=== PATIENT | female | born 1985 | race Caucasian/White ===

== ENCOUNTER 2016-11-11 11:42 | Observation (INO) ==
[2016-11-11] MEDS ORDERED: CefTRIAXone 1,000 MG in D5% in Water (Mini-Bag+) 100 ML IVPB ONE (12:14)
--- NOTE | 2016-11-11 12:14 | Emergency Department Note ---
Disposition Clinical Impression: Sepsis, Altered mental status Disposition: Home, Self-Care Condition: Fair Referrals: Marie Williamson, [employer] [Primary Care Provider] - Forms: ED Satisfaction Letter Time of Disposition: 13:26 (jordan SOTEOL [facility]) Altered Mental Status HPI - General Chief Complaint: ED Altered Mental Status Stated Complaint: Pt not right, out of head, delusional Time Seen by Provider: 11/11/16 12:00 Source: family Mode of arrival: wheelchair Limitations: altered mental status Nursing Notes Reviewed: Yes Vital Signs Reviewed: Yes - History of Present Illness HPI Narrative: Patient had periods of confusion recently diagnosed with influenza A finished a course of Tamiflu has not been eating or drinking during this period time she has had nausea vomiting diarrhea since starting the patient states that she still having fever chills and body aches she is having cough congestion she is having abdominal pain she denies any blurred vision double vision as we feels like he hurts racing denies numbness and weakness recent weight gain or weight loss she denies anyone else having symptoms as she did was diagnosed with pneumonia during this period of time also placed on an antibiotic denies any cough medication MD complaint: confusion Onset (ago): day(s) Timing confirmed by: spouse Pain Severity: moderate Pain Scale: 5 Consistency of Symptoms: waxing and waning Associated symptoms: Reports: chest pain, cough, fever, loss of appetite, malaise, nausea/vomiting, shortness of breath, syncope (near), weakness, difficulty walking. Denies: diaphoresis, chills, headaches, rash, foul smelling urine, diarrhea, incontinence - Related Data Home Medications Medication Instructions Recorded Confirmed Citalopram Hydrobromide [Celexa] 11/11/16 Previous Rx's Medication Instructions Recorded Ibuprofen [Motrin] 600 mg PO Q6HR PRN #20 tab 11/04/16 Acetaminophen/Butalbital/Caffe 1 each PO Q6HR PRN #12 tablet 11/11/16 [Fioricet] Albuterol Sulfate [Albuterol 2 puff IH Q6HR PRN #1 hfa.aer.ad 11/11/16 Inhaler] PredniSONE 20 mg PO DAILY #16 tablet 11/11/16 Allergies Allergy/AdvReac Type Severity Reaction Status Date / Time codeine Allergy Swelling Verified 08/28/16 08:17 of Lip/Tongue/Throat All systems ED: reviewed and negative except as stated. Constitutional: Reports: fever. Denies: chills, weakness Eyes: Denies: vision change ENT ED: Reports: congestion. Denies: ear pain, throat pain Cardiovascular: Reports: chest pain. Denies: palpitations Respiratory: Reports: cough, dyspnea, wheezes, sputum production Gastrointestinal: Reports: abdominal pain, nausea. Denies: vomiting Genitourinary: Denies: urgency, dysuria, frequency Musculoskeletal: Denies: back pain, neck pain Integumentary: Denies: rash, abrasion Neurological: Denies: headache Psychiatric: Denies: anxiety Endocrine: Denies: fatigue Hematological/Lymphatic: Denies: easy bleeding Allergic/Immunologic: Denies: facial swelling Past Medical History - Past Medical History Attestation: Yes The following information was validated with the patient. 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 - Social History Smoking Status: Current every day smoker Smokeless Tobacco Status: Yes Alcohol use: Reports: occasionally Drug use: Reports: marijuana Physical Exam - General Limitations: altered mental status General appearance: alert, in no apparent distress, appears intoxicated, anxious - Head Head exam: atraumatic, normocephalic, normal inspection - Eye Eye exam: Present: normal appearance, PERRL, EOMI - ENT ENT exam: normal exam, normal oropharynx, mucous membranes dry, TM's normal bilaterally, normal external ear exam, other (PND) - Neck Neck exam: Present: normal inspection, full ROM, trachea midline - Chest Chest inspection: Present: normal inspection, symmetric chest wall rise - Respiratory Respiratory exam: Present: normal lung sounds bilaterally, wheezes - Cardiovascular Cardiovascular exam: Present: tachycardia, normal heart sounds - Abdominal Exam Abdominal exam: Present: soft, Non-Tender, normal bowel sounds. Absent: mass, pulsatile mass - Extremities Exam Extremities exam: Present: normal inspection, full ROM, normal capillary refill. Absent: tenderness, pedal edema, calf tenderness - Expanded Lower Extremity Exam Gait: other (feels weak when walking) - Back Exam Back exam: Present: normal inspection, full ROM. Absent: muscle spasm - Neurological Exam Neurological exam: Present: alert, CN II-XII intact, other (at times appeared confused with numbers and forgetful) - Psychiatric Psychiatric exam: Present: anxious - Skin Skin exam: Present: warm, dry, intact, normal color Course Course Narrative: Seen and examined laboratory data ordered chest x-ray was changed to a CT chest infection recently was diagnosed with pneumonia make sure see if it is worsening results patient given fluids - Reevaluation(s) Reevaluation #1: Results patient showing continued confusion and elevated lactic acid level with blood cultures pending we will admit her with IV antibiotics of vancomycin and Rocephin I spoke with Dr. Kinney he is in agreement patient be transferred to [facility] she is given IV fluids to hydrate patient stable at this time Vital Signs Temperature 98.1 F 11/11/16 11:49 Pulse Rate 120 11/11/16 11:49 Respiratory Rate 16 11/11/16 11:49 Blood Pressure 123/67 11/11/16 11:49 O2 Sat by Pulse Oximetry 100 11/11/16 11:49 Temperature 98.6 F 11/11/16 13:15 Pulse Rate 85 11/11/16 13:15 Respiratory Rate 16 11/11/16 13:15 Blood Pressure 108/67 11/11/16 13:15 O2 Sat by Pulse Oximetry 98 11/11/16 13:15 Oxygen Delivery Oxygen Delivery Room Air Altered Mental Status - Differential Diagnosis Likely: altered mental status, sepsis - Medical Records Medical records reviewed: Yes I reviewed the patient's medical records. - Lab Data Lab results reviewed: Yes I reviewed the patient's lab results. Result diagrams: 11/11/16 12:25 Lab Results 11/11/16 11/11/16 11/11/16 Range/Units 12:25 12:25 12:25 WBC 8.8 (4.3-11.1) K/mcL RBC 4.91 (3.82-4.97) M/mcL Hgb 15.2 (11.5-15.4) g/dL Hct 45.2 H (35.3-44.9) % MCV 92.1 (83.0-100.0) fL MCH 31.0 (28.0-33.3) pg MCHC 33.6 (31.6-35.5) g/dL RDW 12.0 (11.5-14.5) % Plt Count 318 (140-400) K/mcL MPV 9.8 (9.4-12.4) fL Immature Gran % 0.5 (0-4) % Seg Neutrophils % 91.0 % Lymphocytes % 7.2 % Monocytes % 1.3 % Eosinophils % 0.0 % Basophils % 0.0 % Neutrophils # 8.0 (1.6-8.9) K/mcL Lymphocytes # 0.6 (0.6-4.6) K/mcL Monocytes # 0.1 (0.0-1.3) K/mcL Eosinophils # 0.0 (0.0-0.6) K/mcL Basophils # 0.0 (0.0-0.2) K/mcL PT 13.5 H (9.4-12.1) Seconds INR 1.2 APTT 31.5 (26.0-36.0) Seconds VBG Lactic Acid 4.8 H* (0.5-2.2) mmol/L - Radiology Data Radiology results reviewed: Yes I reviewed the patient's radiology results. ITS Impressions Chest CT 11/11/16 12:12 IMPRESSION: 1. No acute intrathoracic abnormality. 2. Evidence of prior granulomatous disease with calcified mediastinal and hilar lymph nodes, and a calcified granuloma in the left lower lobe. D/ / 11/11/2016 13:18:41 Nash Park MD / earjose Interpreting Provider: Nash Park MD Head CT 11/11/16 12:12 IMPRESSION: No acute intracranial abnormality detected. Fluid within the paranasal sinuses. D/ / Contreras Jimenez MD / Contreras Jimenez MD Interpreting Provider: Contreras Jimenez MD Checklist - LKW: 3-4.5 hrs Add. Contraindications Patient/family understanding: The patient/family members have been counseled and understood the risk, benefit , and alternatives of treatment. Critical Care Time Critical Care Time: Yes Total Critical Care Time: 35 Attestation: Critical care performed: 35 minutes as result of the elevated lactic acid level which could be consistent with a bacteremia though she does not have the elevated white count but she recently finished antibiotics and this evening secondary to the influenza no evidence of hypoxemia is noted at this time patient appears to be answering questions appropriately at times appears to be more confused with dates and times family at bedside Time is exclusive of separately billable procedures. Time includes: direct patient care, patient reassessment, coordination of patient care, interpretation of data (laboratory data, radiology data, and respiratory data), review of patient's medical records, medical consultation and documentation of patient care. Procedures included in critical care time: Procedures excluded from critical care time:
[2016-11-11 12:44] LABS: Hematocrit 45.2 % (35.3-44.9); Hemoglobin 15.2 g/dL (11.5-15.4); Immature Granulocytes % 0.5 % (0-4); Lymphocytes # 0.6 K/mcL (0.6-4.6); Lymphocytes % 7.2 %; Mean Corpuscular HGB Conc 33.6 g/dL (31.6-35.5); Mean Corpuscular Volume 92.1 fL (83.0-100.0); Mean Platelet Volume 9.8 fL (9.4-12.4); Monocytes # 0.1 K/mcL (0.0-1.3); Monocytes % 1.3 %; Platelet Count 318 K/mcL (140-400); Red Blood Count 4.91 M/mcL (3.82-4.97)
[2016-11-11 12:53] LABS: INR 1.2; Prothrombin Time 13.5 Seconds (9.4-12.1)
[2016-11-11 12:55] LABS: Activated Partial Thrombo Time 31.5 Seconds (26.0-36.0)
[2016-11-11] MEDS ORDERED: Vancomycin 1,000 MG in D5% in Water 250 ML IVPB ONE (13:02)
[2016-11-11] MEDS: 0.9 % Sodium Chloride 1,000 ML IVC SCH ×2 (13:13→14:21)
[2016-11-11 13:19] LABS: Amphetamine Screen,Urine Negative ng/mL (Cutoff=1000); Benzodiazepines Screen,Urine Negative ng/mL (Cutoff=200); Cannabinoid Screen,Urine Positive ng/mL (Cutoff = 50); Cocaine Screen,Urine Negative ng/mL (Cutoff= 300); Opiate Screen,Urine Positive ng/mL (Cutoff=300); Phencyclidine Screen,Urine Negative ng/mL (Cutoff=25)
[2016-11-11 13:20] LABS: Bilirubin,Urine Negative (Negative); Blood,Urine Negative (Negative); Clarity,Urine Clear (Clear); Glucose,Urine (UA) Normal (Normal); Ketones,Urine Negative (Negative); Leukocyte Esterase,Urine Negative (Negative); Nitrite,Urine Negative (Negative); Protein,Urine Negative (Neg-Trace); Urobilinogen,Urine Normal (Normal)
[2016-11-11 13:25] LABS: Color,Urine Light Yellow (Yellow)
[2016-11-11 13:26] LABS: Barbiturate Screen,Urine Positive ng/mL (Cutoff=200)
[2016-11-11 13:38] LABS: Alanine Aminotransferase 14 Units/L (0-55); Albumin 4.2 g/dL (3.5-5.0); Albumin/Globulin Ratio 1.1 (1.1-2.2); Alkaline Phosphatase 60 Units/L (38-126); Aspartate Amino Transferase 15 Units/L (5-34); BUN/Creatinine Ratio 9 (6-26); Bilirubin,Total 0.3 mg/dL (0.2-1.2); Blood Urea Nitrogen 7 mg/dL (7-20); Calcium 9.6 mg/dL (8.6-10.8); Carbon Dioxide 21 mEq/L (19-29); Chloride 106 mEq/L (98-109); Globulin 3.8 g/dL (2.4-3.5); Glucose 144 mg/dL (70-99); Osmolality,Calculated 295 (280-300); Potassium 3.8 mEq/L (3.5-4.5); Sodium 142 mEq/L (136-145); eGFR For African Americans > 60 (> 60); eGFR For Non-African Americans > 60 (> 60)
[2016-11-11] MEDS ORDERED: Ibuprofen 600 MG TABLET PO PRN (14:59)
[2016-11-11] MEDS ORDERED: Ondansetron 4 MG/2 ML VIAL IVP PRN ×2 (14:59→18:53)
[2016-11-11] MEDS ORDERED: Naloxone 0.4 MG/ML INJ IVP PRN (14:59)
[2016-11-11] MEDS ORDERED: 0.9 % Sodium Chloride 1,000 ML IVC SCH ×2 (14:59)
[2016-11-11] MEDS: Nicotine 21 MG PATCH.TD24 TD SCH (16:48)
--- NOTE | 2016-11-11 18:43 | Internal Med History&Physical ---
Date of Encounter: 11/11/16 Time of Encounter: 18:10 Assessment and Plan (1) Altered mental status Current visit: Yes Status: Acute She has been started on IV fluids. I note her urine tox screen is positive for THC, opiates, barbiturates. We will reassess in a.m. Qualifiers: Altered mental status type: disorientation Qualified Code(s): R41.0 - Disorientation, unspecified (2) Pneumonia Current visit: No Status: Acute Chest CT today did not show infiltrates seen on chest x-ray of November 04. She was given vancomycin and Rocephin in the emergency room but I will not continue these. I will also discontinue prednisone. We will recheck labs in a.m. Qualifiers: Pneumonia type: due to unspecified organism Laterality: bilateral Lung location: lower lobe of lung Qualified Code(s): J18.9 - Pneumonia, unspecified organism Internal Medicine - H&P: HPI Chief complaint: Vomiting and diarrhea, confusion Admitted From: Home Plans for Post Hospital Care: Home History of present illness: Ms. Saravia is a 31 year old female who came to emergency room after family noted her to have confusion. She reports she had vomiting and diarrhea intermittently over the past 5-7 days. She states she was diagnosed with influenza at a local urgent care approximately 1 week ago and was prescribed Tamiflu and Hycodan syrup. She came to [facility] ER a day later and was given a Z- Jan for a diagnosis of "pneumonia". She was evaluated in the emergency room today and found to have elevated lactic acid and left shift on WBC differential. She was admitted to [facility] floor for ongoing care needs. She denies significant pain at this time. Her respiratory history significant for having smoked since age 11 up to 1-1/2 packs per day. She has not had PFTs and does not wear home oxygen. Past Med Surg Social Fam HX - Past Medical History Medical history: kidney stones Psychiatric history: anxiety, depression - Past Surgical History Surgical History: , other - Social History Smoking Status: Current every day smoker Smokeless Tobacco Status: Yes Alcohol use: occasionally Drug use: marijuana - Family History Mother Living Status: Still Living Hx Family Cardiac Disorders: No Hx Family Respiratory Disorders: No Hx Family Cancer: No Hx Family GI Disorders: No Hx Family Genitourinary Disorders: No Hx Family Endocrine Disorder: No Hx Family Musculoskeletal Disorders: No Hx Family Neuromuscular Disorders: No Hx Family Neurologic Disorders: No Hx Family HEENT Disorders: No Hx Family Autoimmune Disorders: No Hx Family Reproductive Disorders: No Hx Family Psychosocial Disorders: No Hx Family Medical Disorders: No Internal Medicine - H&P: Meds Ibuprofen [Motrin] 600 mg PO Q6HR PRN #20 tab 11/04/16 [Rx] Acetaminophen/Butalbital/Caffe [Fioricet] 1 each PO Q6HR PRN #12 tablet [Rx] Albuterol Sulfate [Albuterol Inhaler] 2 puff IH Q6HR PRN #1 hfa.aer.ad 11/11/16 [Rx] Citalopram Hydrobromide [Celexa] 20 mg PO DAILY 11/11/16 [History] PredniSONE 20 mg PO DAILY #16 tablet 11/11/16 [Rx] Allergies codeine Allergy (Verified 08/28/16 08:17) Swelling of Lip/Tongue/Throat All Systems PM: A 10-system review of systems was performed and is negative for pertinent findings except as documented above in the HPI. Review of systems: Gen.: She states her weight has decreased approximately 30 pounds in the past few weeks, unintentional Cardiovascular: She has had elevated blood pressure documented occasionally in the past but does not take medication at this time. She denies heart attack heart failure DVT or pulmonary embolus Respiratory: As per history of present illness GI: She denies disorders of her liver gallbladder or exocrine pancreas : She is had kidney stones in the past and has seen the urologist in [place]. She denies other kidney or bladder disorders. Neurologic: She has diagnoses of migraine headaches but denies syncope or large distribution strokes or seizures Endocrine: She denies diabetes thyroid disease or hyperlipidemia Hematology/oncology: She had a lymph node removed from her left neck area the past which was benign. She denies other blood disorders or cancers or anemia Psychiatric: She has depression and occasional feeling of anxiety. She denies other mental health issues Musk skeletal: She had right shoulder surgery in the past and claims she has "arthritis". - Constitutional Vitals: Temp Pulse Resp BP Pulse Ox 97.3 F L 63 16 128/75 99 11/11/16 15:06 11/11/16 15:06 11/11/16 15:06 11/11/16 15:06 11/11/16 15:06 Exam: Gen.: She is well-developed well-nourished female who appears in no acute distress HEENT: Head is atraumatic normocephalic. Eyes: EOMI. There is no scleral icterus. Mouth: Mucosa is moist. Neck: Supple and nontender. There is no thyromegaly or adenopathy noted. Heart: Regular without murmurs gallops or ectopics. Lungs: No wheezes or crackles are heard. Abdomen: Soft and nontender. No masses or guarding are noted. Extremities: There is no cyanosis edema or clubbing noted. Dorsalis pedis and posterior tibial pulses are 1-2 over 2 bilaterally. Neurologic: Mental status: She is talkative but is a fair historian. She confuses details about her recent past history. Cranial nerves: Smile is symmetric. Forehead wrinkles bilaterally. Tongue protrudes midline. EOMI. Motor: There is no pronator drift. Cerebellar: Finger to nose intact bilaterally. Skin: Warm and dry. She has multiple tattoos. She has piercings of her right lateral eyebrow, tongue, and left cheek. Internal Med - H&P Results - Labs CBC & Chem 7: 11/11/16 12:25 11/11/16 12:25
[2016-11-11] MEDS: 0.45 % Sodium Chloride w/KCl 20 MEQ/1,000 ML MLS IVC SCH (22:07)
[2016-11-12] MEDS ORDERED: Pantoprazole 40 MG VIAL IVP SCH (06:30)
[2016-11-12 06:31] LABS: Basophils % 0.2 %; Eosinophils % 0.4 %; Hematocrit 38.4 % (35.3-44.9); Hemoglobin 12.6 g/dL (11.5-15.4); Immature Granulocytes % 0.4 % (0-4); Lymphocytes # 3.3 K/mcL (0.6-4.6); Lymphocytes % 33.6 %; Mean Corpuscular HGB Conc 32.8 g/dL (31.6-35.5); Mean Corpuscular Hemoglobin 30.8 pg (28.0-33.3); Mean Corpuscular Volume 93.9 fL (83.0-100.0); Mean Platelet Volume 10.1 fL (9.4-12.4); Monocytes # 0.7 K/mcL (0.0-1.3); Monocytes % 7.2 %; Neutrophils # 5.7 K/mcL (1.6-8.9); Platelet Count 265 K/mcL (140-400); Red Blood Count 4.09 M/mcL (3.82-4.97); Red Cell Distribution Width 12.4 % (11.5-14.5); Segmented Neutrophils % 58.2 %
[2016-11-12 07:11] LABS: BUN/Creatinine Ratio 6 (6-26); Carbon Dioxide 21 mEq/L (19-29); Chloride 111 mEq/L (98-109); Glucose 85 mg/dL (70-99); Magnesium 2.1 mg/dL (1.6-2.6); Osmolality,Calculated 286 (280-300); Phosphorous 2.5 mg/dL (2.3-4.7); Potassium 4.2 mEq/L (3.5-4.5); Sodium 140 mEq/L (136-145); eGFR For African Americans > 60 (> 60); eGFR For Non-African Americans > 60 (> 60)
[2016-11-12 07:22] LABS: Blood Urea Nitrogen 4 mg/dL (7-20)
[2016-11-12] MEDS: 0.45 % Sodium Chloride w/KCl 20 MEQ/1,000 ML MLS IVC SCH (08:41)
[2016-11-12] MEDS: Nicotine 21 MG PATCH.TD24 TD SCH (08:42)
[2016-11-12] MEDS ORDERED: PredniSONE 20 MG TABLET PO SCH (09:00)
[2016-11-12 10:35] VITALS: BP 100/62
--- NOTE | 2016-11-12 10:51 | Discharge Summary ---
Date of Encounter: 11/12/16 Time of Encounter: 10:40 - Discharge Diagnosis (1) Altered mental status Priority: Primary Status: Resolved Qualifiers: Altered mental status type: disorientation Qualified Code(s): R41.0 - Disorientation, unspecified (2) Pneumonia Priority: Secondary Status: Resolved Qualifiers: Pneumonia type: due to unspecified organism Laterality: bilateral Lung location: lower lobe of lung Qualified Code(s): J18.9 - Pneumonia, unspecified organism - Discharge Medications Home Medications: Ibuprofen [Motrin] 600 mg PO Q6HR PRN #20 tab 11/04/16 [Rx] Acetaminophen/Butalbital/Caffe [Fioricet] 1 each PO Q6HR PRN #12 tablet [Rx] Albuterol Sulfate [Albuterol Inhaler] 2 puff IH Q6HR PRN #1 hfa.aer.ad 11/11/16 [Rx] Citalopram Hydrobromide [Celexa] 20 mg PO DAILY 11/11/16 [History] Allergies/Adverse Reactions: Allergies codeine Allergy (Verified 08/28/16 08:17) Swelling of Lip/Tongue/Throat Date of admission: 11/11/16 13:39 Primary care physician: Marie Williamson CNP Consults: 11/11/16 15:45 Consult to Nutrition [CONS] Routine Comment: Consulting Provider: NUTRITION Reason for Dietary Consult: MST Score - Patient Status Disposition: Home, Self-Care Condition: Fair Overall status at discharge: patient is progressing back to baseline - Discharge Instructions Follow Up With: Marie Williamson CNP [Primary Care Provider] - 1 week - Diet and Activity Activity: resume usual activities as tolerated Diet: advance to your usual diet Hospital course: Ms. Saravia is a 31 year old female who came to emergency room after family noted her to have confusion. She reports she had vomiting and diarrhea intermittently over the past 5-7 days. She states she was diagnosed with influenza at a local urgent care approximately 1 week ago and was prescribed Tamiflu and Hycodan syrup. She came to [facility] ER a day later and was given a Z- Jan for a diagnosis of "pneumonia". She was evaluated in the emergency room today and found to have elevated lactic acid and left shift on WBC differential. She was admitted to [facility] floor for ongoing care needs. Initial orders were written by the emergency room physician. I saw her on November 11 and performed a history and physical. She was started on IV fluids. She was given vancomycin and Rocephin in the emergency room but I did not continue these since there was no evidence of pneumonia on chest CT. On November 12 her WBC was normal and there was resolution of the left shift on the differential. I did not feel she needed further antibiotics or antiviral medication. Her mental status was improved when I saw her on November 12. She wished be discharged which I felt was reasonable. I encouraged her strongly to discontinue use of tobacco products and illicit drugs. She will follow with Marie Williamson CNP within 1 week. - Time Spent with Patient Total time spent providing and/or coordinating discharge services: - Constitutional Vitals: Temp Pulse Resp BP Pulse Ox 97.6 F 89 16 100/62 97 11/12/16 10:30 11/12/16 10:30 11/12/16 10:30 11/12/16 10:30 11/12/16 10:30
== END 2016-11-12 11:08 | disposition home or self-care (01) ==
LOC: INPPIK 11:42 → EMEROOPIK 11:42 → INPPIK 14:29
PROVIDERS: ADMIT Internal Medicine; ATTEND Internal Medicine